=== PATIENT | female | born 1935 | race Caucasian/White ===

== ENCOUNTER 2022-10-16 12:02 | Inpatient (IN) | payer OTHER ==
[2022-10-16 13:34] LABS: BASO % 0.8 % (0-2.0); EOS % 0.9 % (0-4.5); HEMATOCRIT 26.1 % (32.4-45.2); HEMOGLOBIN 8.6 GM/dL (10.7-15.3); LYMPH % 13.6 % (8-40); MCH 30.8 pg (25.7-33.7); MEAN CELL VOLUME 93.4 fl (80-96); MEAN PLT VOLUME 7.5 fl (7.5-11.1); MONO % 10.2 % (3.8-10.2); NEUT % 74.5 % (42.8-82.8); PLATELET COUNT 139 10^3/uL (134-434); RDW 15.1 % (11.6-15.6); WHITE BLOOD COUNT 6.3 K/mm3 (4.0-10.0)
[2022-10-16 13:40] LABS: INR 0.88 (0.83-1.09); PROTHROMBIN TIME (PATIENT) 10.2 SEC (9.7-13.0)
[2022-10-16 13:43] LABS: ACTIVATED PTT 26.1 SECONDS (25.2-36.5)
[2022-10-16 14:05] LABS: ALBUMIN 3.4 g/dl (3.4-5.0); BLOOD UREA NITROGEN 54.6 mg/dL (7-18); CALCIUM 9.3 mg/dL (8.5-10.1); MAGNESIUM 2.5 mg/dL (1.8-2.4)
[2022-10-16 14:08] LABS: CREATININE 5.4 mg/dL (0.55-1.3); PHOSPHOROUS 4.7 mg/dL (2.5-4.9)
[2022-10-16 14:10] LABS: BILIRUBIN,TOTAL 0.4 mg/dL (0.2-1); TOT PROT 6.5 g/dl (6.4-8.2)
[2022-10-16 15:38] VITALS: BMI 22.1
[2022-10-16] MEDS ORDERED: SODIUM CHLORIDE 250 ML IV PRN (15:55)
[2022-10-17 09:17] LABS: BASO % 0.7 % (0-2.0); EOS % 0.8 % (0-4.5); HEMOGLOBIN 8.9 GM/dL (10.7-15.3); LYMPH % 8.3 % (8-40); MCH 31.8 pg (25.7-33.7); MCHC 34.2 g/dl (32.0-36.0); MEAN PLT VOLUME 7.6 fl (7.5-11.1); MONO % 9.9 % (3.8-10.2); NEUT % 80.3 % (42.8-82.8); PLATELET COUNT 145 10^3/uL (134-434)
[2022-10-17 09:46] LABS: ALBUMIN 3.4 g/dl (3.4-5.0); BLOOD UREA NITROGEN 64.8 mg/dL (7-18)
[2022-10-17 09:47] LABS: CALCIUM 9.4 mg/dL (8.5-10.1)
[2022-10-17 09:48] LABS: CREATININE 6.7 mg/dL (0.55-1.3)
[2022-10-17 09:52] LABS: BILIRUBIN,TOTAL 0.4 mg/dL (0.2-1); TOT PROT 6.3 g/dl (6.4-8.2)
[2022-10-17] MEDS ORDERED: ACETAMINOPHEN 325 MG TABLET (FP) PO PRN ×3 (12:55→20:00)
[2022-10-17] MEDS ORDERED: LOSARTAN POTASSIUM 50 MG TABLET PO SCH (13:00)
[2022-10-17] MEDS ORDERED: EPOETIN ALFA-EPBX 10,000 UNIT/ML VIAL SQ ONE (15:55)
[2022-10-17] MEDS ORDERED: HEPARIN NA (PORCINE) 5,000 UNITS/ML 1ML VIAL ONE (16:47)
[2022-10-17] MEDS ORDERED: PROPOFOL 20 ML ONE (17:42)
[2022-10-17] MEDS ORDERED: MIDAZOLAM HCL 2 MG/2 ML SINGLE DOSE VIAL ONE (17:42)
[2022-10-17] MEDS ORDERED: ceFAZolin SODIUM 1 GM VIAL IVPB ONE (18:27)
[2022-10-17] MEDS ORDERED: ONDANSETRON 4 MG/2 ML VIAL ONE (18:45)
[2022-10-17] MEDS ORDERED: PROPOFOL 40 ML ONE (18:46)
[2022-10-17] MEDS ORDERED: LIDOCAINE HCL 1%, 10 MG/ML (20ML VIAL) INF ONE (18:53)
[2022-10-17] MEDS ORDERED: ONDANSETRON 4 MG/2 ML VIAL IVPUSH PRN (19:28)
[2022-10-17] MEDS ORDERED: LABETALOL HCL 20 MG/4 ML VIAL ONE (19:50)
[2022-10-17] MEDS ORDERED: oxyCODONE HCL 5 MG TABLET PO PRN (20:00)
[2022-10-17] MEDS ORDERED: LABETALOL HCL 5 MG/1 ML (100MG/20 ML VIAL) IVPUSH ONE (20:07)
[2022-10-18] MEDS ORDERED: SODIUM CHLORIDE 250 ML IV PRN (10:00)
[2022-10-18] MEDS ORDERED: EPOETIN ALFA-EPBX 10,000 UNIT/ML VIAL SQ ONE (10:00)
[2022-10-18] MEDS: LOSARTAN POTASSIUM 50 MG TABLET PO SCH (12:34)
[2022-10-19] MEDS: LOSARTAN POTASSIUM 50 MG TABLET PO SCH (09:27)
[2022-10-20] MEDS: LOSARTAN POTASSIUM 50 MG TABLET PO SCH (09:22)
[2022-10-20 14:21] VITALS: RESP 18
[2022-10-20] MEDS ORDERED: SODIUM CHLORIDE 250 ML IV PRN (15:00)
[2022-10-20] MEDS ORDERED: EPOETIN ALFA-EPBX 10,000 UNIT/ML VIAL IVPUSH ONE (15:00)
[2022-10-20 15:20] LABS: HEMATOCRIT 24.7 % (32.4-45.2); HEMOGLOBIN 8.3 GM/dL (10.7-15.3); MCH 31.4 pg (25.7-33.7); MCHC 33.5 g/dl (32.0-36.0); MEAN CELL VOLUME 93.6 fl (80-96); MEAN PLT VOLUME 7.9 fl (7.5-11.1); PLATELET COUNT 170 10^3/uL (134-434); RBC 2.64 M/mm3 (3.60-5.2); RDW 15.1 % (11.6-15.6); WHITE BLOOD COUNT 5.8 K/mm3 (4.0-10.0)
[2022-10-20 15:44] LABS: BLOOD UREA NITROGEN 55.9 mg/dL (7-18)
[2022-10-20 15:47] LABS: CREATININE 6.6 mg/dL (0.55-1.3)
[2022-10-20 15:48] LABS: BILIRUBIN,TOTAL 0.3 mg/dL (0.2-1); TOT PROT 5.9 g/dl (6.4-8.2)
[2022-10-21 00:38] VITALS: BP 144/80; PULSE 76; TEMP 98.2
== END 2022-10-21 00:45 | DRG 252 ==
LOC: JER 12:02 → JERBED 12:50 → J6S 14:29
PROVIDERS: ADMIT Internal Medicine; ATTEND Internal Medicine
PROC: 05C80ZZ Extirpation of Matter from Left Axillary Vein, Open Approach (ICD-10-PCS; principal; 2022-10-17 17:30)
PROC: 5A1D70Z Performance of Urinary Filtration, Intermittent, Less than 6 Hours Per Day (ICD-10-PCS; 2022-10-18)
PROC: 5A1D70Z Performance of Urinary Filtration, Intermittent, Less than 6 Hours Per Day (ICD-10-PCS; 2022-10-20)
DX: T82.868A Thrombosis due to vascular prosthetic devices, implants and grafts, initial encounter (principal); N18.6 End stage renal disease; I12.0 Hypertensive chronic kidney disease with stage 5 chronic kidney disease or end stage renal disease; E87.1 Hypo-osmolality and hyponatremia; Y84.8 Other medical procedures as the cause of abnormal reaction of the patient, or of later complication, without mention of misadventure at the time of the procedure; E11.22 Type 2 diabetes mellitus with diabetic chronic kidney disease; I25.10 Atherosclerotic heart disease of native coronary artery without angina pectoris; M19.09 Primary osteoarthritis, other specified site; D63.1 Anemia in chronic kidney disease; F03.90 Unspecified dementia, unspecified severity, without behavioral disturbance, psychotic disturbance, mood disturbance, and anxiety; K21.9 Gastro-esophageal reflux disease without esophagitis; E78.5 Hyperlipidemia, unspecified; Z99.2 Dependence on renal dialysis
CPT/HCPCS: 0241U-QW; 36415; 76000-TC-FY; 80053; 83735; 84100; 85025; 85027; 85610; 85730; 86803; 86850; 86900; 86901; 87070; 87205; 87340; 93005; 93010; 94760; 99285-25; C1757; J1644; Q5106